=== PATIENT | male | born 1980 | race Two or more races ===

== ENCOUNTER 2022-04-29 15:17 | Emergency (ER) | payer OTHER ==
[~2022-04-29] VITALS: Ht 182.9 cm; Wt 65.8 kg
[2022-04-29 16:19] LABS: *BILIRUBIN,URIN NEGATIVE (NEGATIVE); *BLOOD, URINE NEGATIVE (NEGATIVE); *COLOR,URINE YELLOW (YELLOW); *KETONES,URINE NEGATIVE (NEGATIVE); *UROBILINOGEN,URINE 0.2 E.U./dl (NORMAL); LEUKOCYTE ESTERASE ,URINE NEGATIVE (NEGATIVE); NITRITE, URINE NEGATIVE (NEGATIVE); UGLUCOSE NEGATIVE (NEGATIVE)
[2022-04-29 16:21] LABS: *CLARITY,URINE CLOUDY (CLEAR)
[2022-04-29 16:39] LABS: HEMATOCRIT 41.1 % (36.7-47.1); MEAN CORPUSCULAR VOLUME 84.1 fL (73.0-96.2); PLATELET COUNT (AUTO) 372 K/uL (152-348)
[2022-04-29 17:04] LABS: ALANINE AMINOTRANSFERASE 25 U/L (16-63); ALKALINE PHOSPHATASE 124 U/L (50-136); ASPARTATE AMINOTRANSFERASE < 5 U/L (15-37); BILIRUBIN,TOTAL 0.4 mg/dL (0.2-1.0); CARBON DIOXIDE 29 mmol/L (21-32); CHLORIDE 99 mmol/L (98-107); CREATININE 0.8 mg/dL (0.6-1.3); GLUCOSE 107 mg/dL (74-106); LIPASE 128 U/L (73-393); POTASSIUM 3.8 mmol/L (3.5-5.1); TOTAL PROTEIN, SERUM 7.5 g/dL (6.4-8.2); UREA NITROGEN, BLOOD 11 mg/dL (7-18)
[2022-04-29] MEDS ORDERED: IOHEXOL 300MG/ML 100 ML INFUS..BTL ONE (17:44)
[2022-04-29] MEDS ORDERED: SWABABLE VALVE TRANSFER SET EA MC ONE (17:46)
[2022-04-29] MEDS ORDERED: METR500T PO (18:59)
[2022-04-29] MEDS ORDERED: CIPR500T5 PO (18:59)
[2022-04-29 19:08] LABS: BACTERIA,URINE FEW /HPF (NONE SEEN); RBC,URINE 0-3 /HPF (0-3); SQUAMOUS EPITHELIAL CELL,UR FEW /HPF (NONE SEEN); WBC,URINE 0-3 /HPF (0-3)
[2022-04-29 19:09] LABS: URINE AMORPHOUS PHOSPHATES MODERATE /HPF
--- NOTE | 2022-04-29 19:13 | NUR ---
IV removed. Catheter intact and site benign. Pressure and 4x4 gauze applied to site. No bleeding noted.
--- NOTE | 2022-04-29 19:13 | NUR ---
Patient discharged to home in stable condition with family. Written and verbal after care instructions given. Patient verbalizes understanding of instructions. Stressed follow up or return to ER for worsening s/s.
== END 2022-04-29 19:15 | disposition home or self-care (01) ==
LOC: ER 15:17
DX: K52.9 Noninfective gastroenteritis and colitis, unspecified (principal); I88.9 Nonspecific lymphadenitis, unspecified
CPT/HCPCS: 99285; 74177; 71045; 80053; 81001; 83690; 85025; 84484; 36415; 93005; Q9967; A4663